=== PATIENT | male | born 1940 | race Caucasian/White ===

== ENCOUNTER 2016-05-17 11:31 | Emergency (ER) | payer MEDICARE, MEDICAID ==
[2016-05-17 11:32] VITALS: BMI 24.3
[2016-05-17 11:44] VITALS: TEMP 98
--- NOTE | 2016-05-17 11:47 | EDPRACDOC ---
- General Chief Complaint: Fall Stated Complaint: FALL Time Seen by Provider: 05/17/16 11:37 Information Source: Patient - History of Present Illness Onset: DIRECTOR HPI: PT FELL TODAY AT [facility]. PT HIT HIS HEAD AGAINST A CHAIR. THE PT DID NOT HAVE A + LOC. PT HAS NO PAIN, BUT HAS HAD A COUGH. Pain Severity: Reports: Mild Injuries/Pain Location: Reports: head Reason for Fall: Reports: unknown Loss of Consciousness: no loss of consciousness Allergies/Adverse Reactions: Allergies No Known Allergies Allergy (Unverified 05/17/16 11:54) Home Medications: Ambulatory Orders Aspirin 81 mg PO DAILY 02/06/14 Cyanocobalamin (Vitamin B-12) [B-12] 500 mcg PO Q48H 02/06/14 Ergocalciferol (Vitamin D2) [Vitamin D] 50,000 units PO TH 02/06/14 Ferrous Sulfate [Feosol] 325 mg PO 0800 02/06/14 Lamotrigine [Lamictal] 200 mg PO BID 02/06/14 Levetiracetam [Keppra] 10 ml PO BID 02/06/14 Lorazepam [Ativan] 1 mg PO TID 02/06/14 Olanzapine [Zyprexa] 5 mg PO QAM 02/06/14 Phenytoin [Dilantin-125] 4 ml PO TID 02/06/14 Olanzapine [Zyprexa] 20 mg PO HS 02/06/15 Lorazepam [Ativan] 0.5 mg PO BID PRN 06/14/15 Cepacol Anti Liq 0.05% 7 ml MM ACHS 05/17/16 Diltiazem HCl [Diltiazem ER] 360 mg PO 0800 05/17/16 Health Shake 1 each PO QID 05/17/16 Ibuprofen 800 mg PO Q8H PRN 05/17/16 ED Past Medical History - Patient Medical History Neurological History: Reports: Dementia Cardiac History: Reports: Hypertension Psychological History: Denies: Depression Additional Past Medical History: PRESBYACUSIS Surgical History: Reports: No Significant History - Social Medical History Smoking Status: Current some day smoker ETOH: None Substance Abuse: None Lives In: Home EDM Review of Systems - Review of Systems ROS Negative Except as Marked: Yes All systems reviewed and were negative except as marked Respiratory: Cough - Physical Exam Constitutional: Alert (Awake), No apparent distress Oriented to: Time, Person, Place Last recorded Vital Signs: Last Vital Signs Temp 98 F 05/17/16 11:41 Pulse 82 05/17/16 11:41 Resp 18 05/17/16 11:41 BP 149/71 05/17/16 11:41 Pulse Ox 95 05/17/16 11:41 Oxygen Pulse Oxygen Saturation 95 O2 Device Room Air Oxygen Flow Rate Fraction of Inspired Oxygen ( FIO2) - HEENT Head: Normal ( normocephalic) Eye Exam: Normal (PERRL, EOMI, Sclera white) Oropharynx: Normal (Pharynx:Moist without exudate,Gums-no swelling) ENT EAC: Normal TMJ: Normal Nose: No Symptoms Reported (septum midline) Neck: Normal (FROM, trachea at midline) - Respiratory/Cardiovascular Respiratory: Normal - CTA (BBS clear to auscultation without adventitious sounds ) Cardiovascular: Normal (RRR without murmur, gallop or rub) - GI Auscultation: Normal (NABS) Palpation: Normal (Soft,No rebound or guarding, non distended) Tenderness: Non tender Schreiber's Sign: Negative - Musculoskeletal Back: Normal (Non-Tender) Extremities: Normal (Normal tone, Pulses 2+ No cyanosis or edema, FROM) - Integumentary Skin: Normal, Warm, Dry Lymphatics: Normal (no adenopathy) - Neurologic Memory Impaired: Normal Motor Function: Normal (Normal tone, Pulses 2+ No cyanosis or edema, FROM) Cranial Nerve: Normal (CN II-X11 intact sensation, strength 5/5) Cerebellar: Normal Mood Description: Normal Thought: Coherent Perception: Normal - Results 05/17/16 12:06 05/17/16 12:06 - EKG EKG #1 EKG Time: 11:58 -: Yes EKG interpreted by me Rate: bpm: 71 [place]: Normal Rhythm: NSR Block: None Hypertrophy: None ST: Normal - Diagnostic Imaging Head Image interpreted by: Radiologist No acute intracranial abnormality. Chest Image interpreted by: Radiologist No active cardiopulmonary disease. Decision Time to Discharge: 12:52 - Departure Yes I personally saw and evaluated the patient. Disposition: Home Final Diagnosis: Accidental fall, Bronchitis Instructions: Fall Prevention for Older Adults (ED) Education/Counseling Given To: Patient Education/Counseling Given Regarding: Diagnosis, Treatment, Follow Up Referrals: Gely,Imran P, MD [Primary Care Provider] - One Week Prescriptions: No Action Phenytoin [Dilantin-125] 4 ml PO TID Lorazepam [Ativan] 1 mg PO TID Levetiracetam [Keppra] 10 ml PO BID Lamotrigine [Lamictal] 200 mg PO BID Cyanocobalamin (Vitamin B-12) [B-12] 500 mcg PO Q48H Olanzapine [Zyprexa] 5 mg PO QAM Ferrous Sulfate [Feosol] 325 mg PO 0800 Ergocalciferol (Vitamin D2) [Vitamin D] 50,000 units PO TH Aspirin 81 mg PO DAILY Olanzapine [Zyprexa] 20 mg PO HS Lorazepam [Ativan] 0.5 mg PO BID PRN PRN Reason: BREAKTHROUGH ANXIETY Diltiazem HCl [Diltiazem ER] 360 mg PO 0800 Ibuprofen 800 mg PO Q8H PRN PRN Reason: Pain Cepacol Anti Liq 0.05% 7 ml MM ACHS Health Shake 1 each PO QID
[2016-05-17 12:03] LABS: LEUKOCYTES/URINE NEG (NEGATIVE); NITRITE/URINE NEG (NEGATIVE); URINE OCCULT BLOOD 1+ (NEG/TRACE)
[2016-05-17 12:16] LABS: AUTOMATED BASOPHIL 0.2 % (0-2); AUTOMATED MONOCYTE 15.6 % (3-10); AUTOMATED NEUTROPHIL 56.2 % (45-76); MPV 7.1 fL (7.4-10.4)
[2016-05-17 12:32] LABS: BLOOD UREA NITROGEN 10 MG/DL (9-20); CALC CORRECTED 9.2 MG/DL (8.4-10.2); CALCIUM 8.5 MG/DL (8.4-10.2); CALCULATED OSMOLALITY 272 MOs/Kg (270-290); CHLORIDE 107 mEq/L (98-107); GLUCOSE 95 mg/dL (70-99); PHENYTOIN/DILANTIN LEVEL 16.6 MCG/ML (10-20); SODIUM LEVEL 142 mEq/L (137-146); TOTAL PROTEIN 6.6 G/DL (6.3-8.2)
--- NOTE | 2016-05-17 12:41 | DIRPT ---
CLINICAL DATA: Fall this morning, hit head on chair. Confusion. EXAM: CT HEAD WITHOUT CONTRAST TECHNIQUE: Contiguous axial images were obtained from the base of the skull through the vertex without intravenous contrast. COMPARISON: 04/03/2016 FINDINGS: Old left basal ganglia lacunar infarct. There is atrophy and chronic small vessel disease changes. No acute intracranial abnormality. Specifically, no hemorrhage, hydrocephalus, mass lesion, acute infarction, or significant intracranial injury. No acute calvarial abnormality. Visualized paranasal sinuses and mastoids clear. Orbital soft tissues unremarkable. IMPRESSION: No acute intracranial abnormality. Electronically Signed By: Juanpablo Dupree M.D. On: 05/17/2016 12:38
--- NOTE | 2016-05-17 12:47 | DIRPT ---
CLINICAL DATA: Cough EXAM: CHEST 2 VIEW COMPARISON: 02/06/2015 FINDINGS: The heart size and mediastinal contours are within normal limits. Both lungs are clear. The visualized skeletal structures are unremarkable. IMPRESSION: No active cardiopulmonary disease. Electronically Signed By: Severino Ross M.D. On: 05/17/2016 12:44
[2016-05-17 13:46] VITALS: BP 149/71; PULSE 82
== END 2016-05-17 13:44 | disposition home or self-care (01) ==
LOC: ED 11:31
DX: J40 Bronchitis, not specified as acute or chronic (principal); S09.90XA Unspecified injury of head, initial encounter; W18.39XA Other fall on same level, initial encounter; Y93.9 Activity, unspecified
CPT/HCPCS: 36415; 70450; 71020; 80053; 80185; 81001; 85025; 93005; 99284